=== PATIENT | male | born 1990 | race Hispanic/Latino ===

== ENCOUNTER 2022-01-02 03:22 | Emergency (ER) | payer OTHER, SELFPAY ==
[2022-01-02] MEDS ORDERED: CEFAZOLIN 1 GM VIAL ONE (03:30)
[2022-01-02] MEDS ORDERED: Lidocaine 1% w/Epinephrine 1:100K 20 ML VIAL ONE (03:30)
[2022-01-02] MEDS ORDERED: Bacitracin 1 PK ONE (03:31)
== END 2022-01-02 04:15 | disposition home or self-care (01) ==
LOC: BURERS 03:22
DX: S81.812A Laceration without foreign body, left lower leg, initial encounter (principal); W26.8XXA Contact with other sharp object(s), not elsewhere classified, initial encounter
CPT/HCPCS: 12002; 96372; J0690

== ENCOUNTER 2022-01-10 08:48 | Emergency (ER) | payer SELFPAY | END 2022-01-10 09:53 | disposition home or self-care (01) | LOC: BURERS 08:48 | DX: S81.812D Laceration without foreign body, left lower leg, subsequent encounter (principal) ==